=== PATIENT | female | born 1955 | race Caucasian/White ===

== ENCOUNTER 2021-07-12 10:18 | Emergency (ER) | payer MEDICARE ==
[~2021-07-12 10:18] MED LIST: CYMBALTA30 MG PO; DICLOFENAC SODI75 MG PO; HYDROCHLOROTHIA25 MG PO; LISINOPRIL10 MG PO; LOPRESSOR 50 MG50 MG PO; METFORMIN HCL500 MG PO; MOBIC15 MG PO; NEURONTIN 400400 MG PO; PERCOCET 10-321 EACH PO; PRILOSEC OTC20 MG PO; TRAMADOL HCL50 MG PO; XARELTO10 MG PO
== END 2021-07-12 12:30 | disposition home or self-care (01) ==
LOC: ER1 10:18
DX: M54.41 Lumbago with sciatica, right side (principal); E11.9 Type 2 diabetes mellitus without complications; I10 Essential (primary) hypertension; Z87.891 Personal history of nicotine dependence
CPT/HCPCS: 96372; 99283; J1100; J1885

== ENCOUNTER → 2021-08-25 | Outpatient (CLI) | payer MEDICARE | LOC: EXRD 13:29 | DX: M54.50 Low back pain, unspecified (principal); M25.551 Pain in right hip; M25.561 Pain in right knee; M47.816 Spondylosis without myelopathy or radiculopathy, lumbar region; M17.11 Unilateral primary osteoarthritis, right knee; M16.11 Unilateral primary osteoarthritis, right hip | CPT/HCPCS: 72100; 73502; 73564 ==

== ENCOUNTER → 2021-11-28 | Outpatient (CLI) | payer MEDICARE | LOC: MAMO 10:30 | DX: Z12.31 Encounter for screening mammogram for malignant neoplasm of breast (principal) | CPT/HCPCS: 77063; 77067 ==

== ENCOUNTER → 2021-12-30 | Outpatient (CLI) | payer MEDICARE | LOC: NM 09:30 | DX: R94.31 Abnormal electrocardiogram [ECG] [EKG] (principal); I25.10 Atherosclerotic heart disease of native coronary artery without angina pectoris; E11.9 Type 2 diabetes mellitus without complications; I11.9 Hypertensive heart disease without heart failure; I37.1 Nonrheumatic pulmonary valve insufficiency | CPT/HCPCS: ECHO; 78452; 93017; 93306; A9502; J2785 ==

== ENCOUNTER 2022-01-27 05:34 | Day surgery (SDC) | payer MEDICARE ==
[~2022-01-27] VITALS: Ht 170.2 cm; Wt 122.5 kg
[~2022-01-27 05:34] MED LIST changes: -HYDROCHLOROTHIA25 MG PO; -METFORMIN HCL500 MG PO; +NEURONTIN600 MG PO; +PERCOCET 7.5-31 EACH PO
[2022-01-27] MEDS ORDERED: METFORMIN HCL500 MG PO (10:45)
[2022-01-27] MEDS ORDERED: ELIQUIS2.5 MG PO (11:21)
[2022-01-27] MEDS ORDERED: PRILOSEC OTC20 MG PO (11:51)
[2022-01-27] MEDS ORDERED: MOBIC15 MG PO (11:52)
[2022-01-27] MEDS ORDERED: LIPITOR80 MG PO (11:53)
[2022-01-27] MEDS ORDERED: CYCLOBENZAPRINE10 MG PO (15:01)
[2022-01-27] MEDS ORDERED: ONDANSETRON HCL4 MG PO (15:04)
[2022-01-27] MEDS ORDERED: MULTIVITAMIN1 EACH PO (15:05)
[2022-01-27] MEDS ORDERED: PROAIR HFA8.5 GM INH (15:07)
[2022-01-27] MEDS ORDERED: MAGNESIUM OXID500 MG PO (15:07)
[2022-01-27] MEDS ORDERED: LOW DOSE ASPIRI81 MG PO (15:39)
[2022-01-27] MEDS ORDERED: HYDROCHLOROTHIA25 MG PO (15:46)
[2022-01-28 06:19] LABS: HEMOGLOBIN 10.2 gm/dl (12.3-15.3); RED BLOOD COUNT 3.64 M/UL (4.00-5.10)
[2022-01-28 06:34] LABS: BUN/CREATININE RATIO 19 (0-10)
== END 2022-01-28 17:55 | disposition home or self-care (01) ==
LOC: UNDOADMIN 05:34 → OR 05:34 → CDU 05:34 → M/S 12:38 → CDU 12:38 → M/S 12:38 → EDSTATUS 14:30 → M/S 01-28 17:55 → OR 01-28 17:55
PROVIDERS: Orthopaedic Surgery
PROC: 3E0T3BZ Introduction of Anesthetic Agent into Peripheral Nerves and Plexi, Percutaneous Approach (ICD-10-PCS; 2022-01-27)
PROC: 0SRC0J9 Replacement of Right Knee Joint with Synthetic Substitute, Cemented, Open Approach (ICD-10-PCS; principal; 2022-01-27 14:30)
DX: M17.11 Unilateral primary osteoarthritis, right knee (principal); Z20.822 Contact with and (suspected) exposure to COVID-19; M21.161 Varus deformity, not elsewhere classified, right knee; I25.10 Atherosclerotic heart disease of native coronary artery without angina pectoris; K21.9 Gastro-esophageal reflux disease without esophagitis; I10 Essential (primary) hypertension; Z86.16 Personal history of COVID-19; E11.9 Type 2 diabetes mellitus without complications; E78.5 Hyperlipidemia, unspecified; E66.01 Morbid (severe) obesity due to excess calories; Z68.42 Body mass index [BMI] 45.0-49.9, adult; Z79.82 Long term (current) use of aspirin; Z79.84 Long term (current) use of oral hypoglycemic drugs; Z79.899 Other long term (current) drug therapy; Z87.891 Personal history of nicotine dependence; Z95.5 Presence of coronary angioplasty implant and graft; Z96.652 Presence of left artificial knee joint
CPT/HCPCS: 36415; 73560; 80048; 82962; 85027; 86850; 86900; 86901; 94760; 97110-GP-CQ; 97116-GP-CQ; 97161; 97166; 97535; C1713; C1776; J0690; J1100; J2001; J2250; J2270; J2274; J2704; J3010; J3370; J7030; J7120; U0002

== ENCOUNTER → 2022-04-21 | Outpatient (CLI) | payer MEDICARE ==
[~2022-04-21] MED LIST changes: +CYCLOBENZAPRINE10 MG PO; +ELIQUIS2.5 MG PO; +HYDROCHLOROTHIA25 MG PO; +LIPITOR80 MG PO; +LOW DOSE ASPIRI81 MG PO; +MAGNESIUM OXID500 MG PO; +METFORMIN HCL500 MG PO; +MULTIVITAMIN1 EACH PO; +ONDANSETRON HCL4 MG PO; +PROAIR HFA8.5 GM INH
== END ==
LOC: EXRD 11:26
DX: Z78.0 Asymptomatic menopausal state (principal)
CPT/HCPCS: 77080

== ENCOUNTER → 2022-04-27 | Outpatient (CLI) | payer MEDICARE | LOC: KOH-I 04-15 10:30 | DX: Z87.891 Personal history of nicotine dependence (principal) | CPT/HCPCS: 71271 ==